=== PATIENT | male | born 1995 | race Caucasian/White ===

== ENCOUNTER 2017-04-25 21:15 | Emergency (ER) | payer SELFPAY ==
[2017-04-25 21:24] VITALS: TEMP 98.1; BMI 23.1
--- NOTE | 2017-04-25 21:28 | PDOC ---
History of Present Illness - General History Source: Patient Exam Limitations: Clinical Condition, Intoxication - History of Present Illness Initial Comments: 04/25/17 22:08 The patient is a 21 year old male, with a significant past medical history of anxiety and ADHD, who presents to the emergency department, brought in by friends, for seizure like episode just moments prior to his ED arrival.The patient states he was feeling anxious this evening, drank a few beers, snorted cocaine, and smoked marijuana while watching a movie on the couch. The patients friend states the patient stood up, became very stiff and started to shake with his hands up in the air. The friend states this episode lasted about 45 seconds and was followed by a few moments of unresponsiveness and confusion. The friend states the patient lied on the ground with his eyes barely open before he started to say names that were different than the names of the people in the apartment at the time. The patient states he does not recall this episode. The patient denies a history of seizure. The patient denies tongue injury. PAST MEDICAL HISTORY: anxiety and ADHD PAST SURGICAL HISTORY: no significant history FAMILY HISTORY: no pertinent history SOCIAL HISTORY: Pt lives with family and is employed. MEDICATIONS: reviewed ALLERGIES: As per nursing notes Adult ROS General: No fevers or chills, no weakness, no weight loss HEENT: No change in vision. No sore throat,. No ear pain CardioVascular: No chest pain or shortness of breath Respiratory:No cough, or wheezing. Gastrointestinal: no nausea, vomiting, diarrhea or constipation, No rectal bleeding Genitourinary: No dysuria, hematuria, or frequency Musculoskeletal: No joint or muscle pain or swelling Neurologic: No headache, vertigo, dizziness or loss of consciousness Psychiatric: (+) anxious Skin: No rashes or easy bruising Endocrine: no increased thirst or abnormal weight change Allergic: no skin or latex allergy All other systems reviewed and normal Adult Exam: General: (+) anxious appearing. Well-nourished well-developed individual, no acute distress HEENT: Throat: Normal, tonsils normal, no erythema or exudate Neck: Supple, no meningeal signs, no lymphadenopathy Eyes::Pupils equal reactive and round, extraocular motion intact Chest: Nontender to palpation Cardiac: (+) slightly tachycardic rate. S1-S2 normal, regular rhythm, no murmurs rubs or gallops Respiratory: Lungs clear to auscultation bilateral Abdomen: Soft, nondistended, normal bowel sounds, nontender to palpation diffusely Extremities: Warm, dry, no cyanosis, clubbing, or edema Skin: No rashes Neuro: Alert and oriented x3, nonfocal exam, grossly intact, normal gait Psych: (+) anxious appearing. <Ivana Massey - Last Filed: 04/25/17 22:07> - General History Source: Patient - History of Present Illness Initial Comments: A portion of this note was documented by scribe services under my direction. I have reviewed the details of the note, within reason, and agree with the documentation. The case summary and management plan written by me. 04/25/17 Medical decision making: This is a 21-year-old male with polysubstance on board of cocaine, marijuana, alcohol and psychotropic medications including Ritalin Patient's was with some friends this evening post doing the cocaine he had what the friends describe is most likely a seizure with a proximally 20 minute postictal period. The friends brought him to the emergency room here in the emergency room he is still somewhat postictal. We'll obtain workup including CBC, comp, urinalysis and urine drug screen for drugs of abuse While monitor and asked security to do a one-on-one watch. We'll follow-up workup and reassess 21:30 Reassessment 04/25/17 21:30 Still very anxious will medicate with some Ativan 22:30 Patient feeling better much less anxious post Ativan lab work is normal urine drug screen still pending 04/25/17 23:36 Reevaluation patient feeling much better at his baseline mental status. Patient wants to go home. Patient's urine tox is pending however results of the urine tox will not change my decision for discharge patient's friends were called and they will come pick him up and take him home and be with him tonight. <Vinnie Yousif I - Last Filed: 04/25/17 23:37> - General Chief Complaint: Seizure Stated Complaint: SEIZURE, RESTLESS Time Seen by Provider: 04/25/17 21:27 Past History <Ivana Massey - Last Filed: 04/25/17 22:07> - Past Medical History COPD: No Psychiatric Problems: Yes (ANXIETY) - Suicide/Smoking/Psychosocial Hx Smoking History: Unknown if ever smoked Hx Alcohol Use: Yes Drug/Substance Use Hx: No Substance Use Type: Alcohol <Vinnie Yousif I - Last Filed: 04/25/17 23:37> - Past Medical History Allergies/Adverse Reactions: Allergies Allergy/AdvReac Type Severity Reaction Status Date / Time No Known Allergies Allergy Verified 04/25/17 21:18 Home Medications: Ambulatory Orders Imipramine HCl 150 mg PO HS 04/25/17 Olanzapine [Zyprexa] 7.5 mg PO HS 04/25/17 *Physical Exam - Vital Signs Last Vital Signs Temp Pulse Resp BP Pulse Ox 98.1 F 108 H 20 146/100 100 04/25/17 21:15 04/25/17 21:53 04/25/17 21:53 04/25/17 21:53 04/25/17 21:53 <Ivana Massey - Last Filed: 04/25/17 22:07> - Vital Signs Last Vital Signs Temp Pulse Resp BP Pulse Ox 98.1 F 124 H 20 153/91 96 04/25/17 21:15 04/25/17 21:15 04/25/17 21:15 04/25/17 21:15 04/25/17 21:15 <Vinnie Yousif I - Last Filed: 04/25/17 23:37> ED Treatment Course - LABORATORY CBC & Chemistry Diagram: 04/25/17 21:35 04/25/17 21:35 - ADDITIONAL ORDERS Additional order review: Laboratory Results 04/25/17 21:35 Sodium 137 Potassium 4.3 Chloride 104 Carbon Dioxide 19 L Anion Gap 14 BUN 9 Creatinine 1.0 Creat Clearance w eGFR > 60 Random Glucose 87 Calcium 9.5 Total Bilirubin 0.3 AST 27 ALT 23 Alkaline Phosphatase 68 Total Protein 7.9 Albumin 4.6 04/25/17 21:35 RBC 5.30 MCV 88.4 MCHC 34.9 RDW 12.0 MPV 8.3 Neutrophils % No Result Required. Lymphocytes % No Result Required. - Medications Given in the ED: ED Medications Discontinued Medications Generic Name Dose Route Start Last Admin Trade Name Freq PRN Reason Stop Dose Admin Lorazepam 2 mg 04/25/17 21:41 04/25/17 21:48 Ativan Injection - IVPUSH 04/25/17 21:42 2 mg ONCE ONE Administration <Ivana Massey - Last Filed: 04/25/17 22:07> - LABORATORY CBC & Chemistry Diagram: 04/25/17 21:35 04/25/17 21:35 <Vinnie Yousif I - Last Filed: 04/25/17 23:37> *DC/Admit/Observation/Transfer - Attestations Scribe Attestion: 04/25/17 22:13 Documentation prepared by Ivana Massey, acting as medical csr for Vinnie Yousif MD <Ivana Massey - Last Filed: 04/25/17 22:07> - Discharge Dispostion Admit: No <Vinnie Yousif I - Last Filed: 04/25/17 23:37> Diagnosis at time of Disposition: Polysubstance (excluding opioids) dependence, daily use - Discharge Dispostion Disposition: HOME Condition at time of disposition: Stable - Patient Instructions Additional Instructions: Return to the emergency department immediately with ANY new, persistent or worsening symptoms. Continue any medications as previously prescribed by your physician. You should follow up with your primary doctor as soon as possible regarding today's emergency department visit. . Please make sure your doctor reviews the results of your emergency evaluation. Thank you for coming to the Emergency Department today for your care. It was a pleasure to see you today. Please note that your evaluation is INCOMPLETE until you follow-up with your doctor.
[2017-04-25] MEDS ORDERED: LORazepam 2 MG/ML SDV VIAL ONE (21:42)
[2017-04-25 21:52] LABS: HEMATOCRIT 46.9 % (35.4-49); HEMOGLOBIN 16.4 GM/dl (11.7-16.9); MCH 30.8 pg (25.7-33.7); MCHC 34.9 g/dl (32.0-35.9); MEAN CELL VOLUME 88.4 fl (80-96); MEAN PLT VOLUME 8.3 fl (7.5-11.1); PLATELET COUNT 249 K/MM3 (134-434); WHITE BLOOD COUNT 8.8 K/mm3 (4.0-10.8)
[2017-04-25 22:03] LABS: ALBUMIN 4.6 g/dl (3.5-5.0); ALK PHOS 68 U/L (32-92); ANION GAP 14 (8-16); BILIRUBIN,TOTAL 0.3 mg/dl (0.2-1.0); BLOOD UREA NITROGEN 9 mg/dl (7-18); CALCIUM 9.5 mg/dl (8.4-10.2); CHLORIDE 104 mmol/L (98-107); CO2 19 mmol/L (22-28); GLUCOSE,RANDOM 87 mg/dl (74-106); POTASSIUM 4.3 mmol/L (3.5-5.1); SGOT/AST 27 U/L (10-42); SGPT/ALT 23 U/L (10-40); SODIUM 137 mmol/L (136-145); TOT PROT 7.9 g/dl (6.4-8.3)
[2017-04-25 22:25] LABS: PLATELET ESTIMATE ADEQUATE
[2017-04-25 22:42] LABS: PH,URINE 6.5 (4.5-8); URINE APPEARANCE Clear; URINE BILIRUBIN Negative (NEGATIVE); URINE GLUCOSE (UA) Negative (NEGATIVE); URINE KETONE Negative (NEGATIVE); URINE LEUK ESTERASE Negative (NEGATIVE); URINE NITRITE Negative (NEGATIVE); URINE PROTEIN Trace (NEGATIVE); URINE UROBILINOGEN 0.2 (0.2-1.0)
[2017-04-25 22:43] LABS: URINE BLOOD Trace-intact (NEGATIVE); URINE COLOR YELLOW
[2017-04-25] MEDS ORDERED: SODIUM CHLORIDE 1,000 ML IV ONE (22:47)
[2017-04-25 22:59] LABS: URINE BACTERIA FEW /hpf (NEGATIVE); URINE WBC 0-2 (0-2)
[2017-04-25 23:37] VITALS: BP 152/99; PULSE 116
[2017-04-25 23:52] LABS: METHADONE, UR NEGATIVE ng/ml (CUTOFF=300); OPIATES, URI NEGATIVE ng/ml (CUTOFF=300); PHENCYCLIDINE,URINE NEGATIVE ng/ml (CUTOFF=25); URINE AMPHETAMINES NEGATIVE ng/ml (CUTOFF=500); URINE BARBITURATES NEGATIVE ng/ml (CUTOFF=200); URINE BENZODIAZEPINES NEGATIVE ng/ml (CUTOFF=200)
[2017-04-25 23:55] LABS: COCAINE, UR POSITIVE ng/ml (CUTOFF=300)
== END 2017-04-25 23:48 | disposition home or self-care (01) ==
LOC: FER 21:15
PROC: 3E033NZ Introduction of Analgesics, Hypnotics, Sedatives into Peripheral Vein, Percutaneous Approach (ICD-10-PCS; principal; 2017-04-25)
PROC: 3E0337Z Introduction of Electrolytic and Water Balance Substance into Peripheral Vein, Percutaneous Approach (ICD-10-PCS; 2017-04-25)
DX: F19.20 Other psychoactive substance dependence, uncomplicated (principal); F41.9 Anxiety disorder, unspecified
CPT/HCPCS: 36415; 80053; 80307; 81003; 81015; 85025; 99282-25